=== PATIENT | male | born 1985 | race African-American/Black ===

== ENCOUNTER 2019-09-10 14:29 | Emergency (ER) | payer OTHER, SELFPAY ==
[~2019-09-10] VITALS: Ht 185.4 cm; Wt 89.6 kg
[~2019-09-10 14:29] MED LIST: ACET1TAB55 PO; AMOX500C PO; AUGM500T34 PO; AUGM875T28 PO; HYDR-3715 PO; IBUP80TA PO; NAPR-837 PO; PAME25CA PO; PRED20TA PO; ZOFR4TAB14 PO
[2019-09-10] MEDS ORDERED: PRED20TA PO (16:13)
[2019-09-10] MEDS ORDERED: AUGM875T28 PO (16:13)
[2019-09-10] MEDS ORDERED: FLUTISP (16:13)
[2019-09-10 16:17] VITALS: BP 136/88
== END 2019-09-10 16:19 | disposition home or self-care (01) ==
LOC: M ED 14:29
DX: J01.90 Acute sinusitis, unspecified (principal); F17.200 Nicotine dependence, unspecified, uncomplicated; F12.10 Cannabis abuse, uncomplicated

== ENCOUNTER 2019-09-20 12:41 | Emergency (ER) | payer SELFPAY ==
[~2019-09-20] VITALS: Ht 185.4 cm; Wt 92.7 kg
[~2019-09-20 12:41] MED LIST changes: +FLUTISP
[2019-09-20] MEDS ORDERED: CYCLOBENZAPRINE 10 MG TAB PO ONE (13:30)
[2019-09-20] MEDS ORDERED: IBUPROFEN 800 MG TAB PO ONE (15:00)
[2019-09-20] MEDS ORDERED: IBUP80TA PO (15:56)
[2019-09-20 16:00] VITALS: BP 141/76
== END 2019-09-20 16:01 | disposition home or self-care (01) ==
LOC: M ED 12:41
DX: M79.606 Pain in leg, unspecified (principal); W18.40XA Slipping, tripping and stumbling without falling, unspecified, initial encounter; Y92.410 Unspecified street and highway as the place of occurrence of the external cause; Y93.9 Activity, unspecified; Y99.9 Unspecified external cause status; F12.10 Cannabis abuse, uncomplicated

== ENCOUNTER 2021-06-08 00:07 | Emergency (ER) | payer SELFPAY ==
[~2021-06-08] VITALS: Ht 185.4 cm; Wt 80.3 kg
[2021-06-08 00:08] VITALS: BP 140/86
== END 2021-06-08 03:16 | disposition left against medical advice (07) ==
LOC: M ED 00:07
DX: Z53.21 Procedure and treatment not carried out due to patient leaving prior to being seen by health care provider (principal)

== ENCOUNTER 2021-06-22 23:05 | Emergency (ER) | payer SELFPAY ==
[~2021-06-22] VITALS: Ht 185.4 cm; Wt 78.8 kg
--- NOTE | 2021-06-23 01:54 | REPVR ---
PROCEDURE INFORMATION: Exam: XR Chest Exam date and time: 06/22/2021 12:00 AM Age: 36 years old Clinical indication: Pain; Angina pectoris; Additional info: Chest pain TECHNIQUE: Imaging protocol: XR of the chest. Views: 2 views. COMPARISON: No relevant prior studies available. FINDINGS: Lungs: Unremarkable. No consolidation. Pleural spaces: Unremarkable. No pleural effusion. No pneumothorax. Heart/Mediastinum: Unremarkable. No cardiomegaly. Bones/joints: Unremarkable. IMPRESSION: No acute findings. Electronically signed by: Maximiliano Boyd On 06/23/2021 01:53:37 AM
[2021-06-23] MEDS ORDERED: NS 1,000 ML IV ONE (07:40)
[2021-06-23] MEDS ORDERED: GI COCKTAIL 50ML BTL(HYOSCYAMINE/MAALOX/LIDOCAINE VISCOUS)(1:3:1) PO ONE (07:40)
[2021-06-23] MEDS ORDERED: PANTOPRAZOLE 40MG VIAL (C9113 PER 1) IV ONE (07:40)
--- OUTSIDE RECORDS SUMMARY | 2021-06-23 07:56 | CCD ---
Author Author [facility] Organization [facility] Address Unknown Phone Unavailable Support Name Relationship Address Phone LEAH Next Of Kin [address] [place] [address] Maryse Smith Next Of Kin [address] [place] [address] Paras CASTANEDA Miriam Next Of Kin [address] [place], [place] [id number] ISABELLA LEAL Next Of Kin [address] [place] [address] JOSÉ MANUEL Next Of Kin [address] [place] [address] CYNTHIA MAYER Next Of Kin [address] [facility] [address] [place] [address] Re-disclosure Warning The records that you are about to access may contain information from federally-assisted alcohol or drug abuse programs. If such information is present, then the following federally mandated warning applies: This information has been disclosed to you from records protected by federal confidentiality rules (42 CFR part 2). The federal rules prohibit you from making any further disclosure of this information unless further disclosure is expressly permitted by the written consent of the person to whom it pertains or as otherwise permitted by 42 CFR part 2. A general authorization for the release of medical or other information is NOT sufficient for this purpose. The Federal rules restrict any use of the information to criminally investigate or prosecute any alcohol or drug abuse patient.The records that you are about to access may contain highly sensitive health information, the redisclosure of which is protected by Article 27-F of the [place] Public Health law. If you continue you may have access to information: Regarding HIV / AIDS; Provided by facilities licensed or operated by the [place] Office of Mental Health; or Provided by the [place] Office for People With Developmental Disabilities. If such information is present, then the following [place] [facility] mandated warning applies: This information has been disclosed to you from confidential records which are protected by state law. State law prohibits you from making any further disclosure of this information without the specific written consent of the person to whom it pertains, or as otherwise permitted by law. Any unauthorized further disclosure in violation of state law may result in a fine or chcf sentence or both. A general authorization for the release of medical or other information is NOT sufficient authorization for further disc losure. Medications No Information Insurance Providers Payer name Policy type / Coverage type Policy ID Covered republican ID Covered republican's relationship to parra Policy Parra Plan Information [facility] [id number] [facility] PLAN [facility] [id number] ANSI-Medicaid [id number] [facility] Commercial [id number] Self [id number] [facility] Commercial [id number] Self [id number] [facility] [id number] [facility]-Medicaid [id number] [facility]-Medicaid [id number] [facility] Commercial [id number] Self [id number] [facility]-Medicaid [id number] SELF PAY ONLY [id number] Self Pay P UNAVAILABLE S UNAVAILA BLE Problems, Conditions, and Diagnoses No Information Surgeries/Procedures No Information Results No Information Social History No Information
[2021-06-23 08:32] LABS: BASO % 1.1 % (0.0-1.0); EOS # 0.1 10^3/uL (0.0-0.5); EOS % 2.2 % (0.0-3.0); HEMATOCRIT 40.1 % (42.0-52.0); HEMOGLOBIN 13.5 g/dl (13.5-17.5); LYMPH # 1.8 10^3/uL (1.5-5.0); MEAN CORPUSCULAR HEMOGLOBIN 28.7 pg (27.0-33.0); MEAN CORPUSCULAR HGB CONC 33.7 g/dl (32.0-36.5); MEAN CORPUSCULAR VOLUME 85.3 fl (80.0-96.0); MONO # 0.3 10^3/uL (0.0-0.8); MONO % 8.8 % (2.0-8.0); NEUTROPHILS # 1.4 10^3/uL (1.5-8.5); NEUTROPHILS % 37.9 % (36.0-66.0); PLATELET COUNT, AUTOMATED 200 10^3/uL (150-450); WHITE BLOOD COUNT 3.6 10^3/uL (4.0-10.0)
[2021-06-23 08:48] LABS: ALBUMIN 3.8 GM/DL (3.2-5.2); BILIRUBIN,DIRECT 0.2 MG/DL (0.0-0.2); BILIRUBIN,TOTAL 0.7 MG/DL (0.2-1.0); TOTAL PROTEIN 6.9 GM/DL (6.4-8.2)
[2021-06-23] MEDS ORDERED: KETOROLAC 30 MG/ML 1ML VIAL IV ONE (09:40)
[2021-06-23] MEDS ORDERED: OMEP-218 PO (10:14)
[2021-06-23 10:34] VITALS: BP 148/88
[2021-06-23 11:02] LABS: RSV AMPLIFICATION NEGATIVE (NEGATIVE)
--- NOTE | 2021-06-23 20:27 | ECGEPIP ---
[facility] - ED Test Date: 2021-06-22 Pat Name: KAMRAN GARZA Department: Room: - Gender: Male [employer] Specialist: GOSIA : 1985 Requested By: Tony Tatum Order Number: [id number] Reading MD: Tony Zelaya Measurements Intervals [place] Rate: 52 P: 49 OK: 180 QRS: 73 QRSD: 96 T: 55 QT: 392 QTc: 364 Interpretive Statements Sinus bradycardia Minimal voltage criteria for LVH, may be normal variant ( Sokolow-De Luna ) NO PRIORS FOR COMPARISON Electronically Signed on 06-23-2021 20:26:27 EST by Tony Zelaya
== END 2021-06-23 10:36 | disposition home or self-care (01) ==
LOC: M ED 23:05
DX: R07.89 Other chest pain (principal); R00.1 Bradycardia, unspecified; Z79.899 Other long term (current) drug therapy
CPT/HCPCS: 71046; 80047; 80076; 82550; 83690; 84484; 85025; 87631; 93005; 96361; 96374; 96375; 99284; C9113; J1885

== ENCOUNTER 2021-07-11 23:49 | Emergency (ER) | payer SELFPAY ==
[~2021-07-11] VITALS: Ht 185.4 cm; Wt 78.8 kg
[~2021-07-11 23:49] MED LIST changes: +OMEP-218 PO
[2021-07-11 23:50] VITALS: BP 140/86
[2021-07-12] MEDS ORDERED: NS 1,000 ML IV ONE (07:15)
[2021-07-12] MEDS ORDERED: KETOROLAC 30 MG/ML 1ML VIAL IV ONE (07:15)
[2021-07-12 07:50] LABS: BASO % 0.9 % (0.0-1.0); EOS # 0.1 10^3/uL (0.0-0.5); EOS % 2.8 % (0.0-3.0); HEMATOCRIT 40.1 % (42.0-52.0); HEMOGLOBIN 13.6 g/dl (13.5-17.5); LYMPH # 2.2 10^3/uL (1.5-5.0); LYMPH % 51.5 % (24.0-44.0); MEAN CORPUSCULAR HGB CONC 33.9 g/dl (32.0-36.5); MEAN CORPUSCULAR VOLUME 85.5 fl (80.0-96.0); MONO # 0.4 10^3/uL (0.0-0.8); NEUTROPHILS # 1.5 10^3/uL (1.5-8.5); NEUTROPHILS % 34.8 % (36.0-66.0); PLATELET COUNT, AUTOMATED 205 10^3/uL (150-450); RED BLOOD COUNT 4.69 10^6/uL (4.30-6.10); WHITE BLOOD COUNT 4.3 10^3/uL (4.0-10.0)
--- NOTE | 2021-07-12 08:13 | REP ---
INDICATION: CP, upper abd pain COMPARISON: 06/22/2021 TECHNIQUE: Portable AP view of the chest FINDINGS: The mediastinum and cardiac silhouette are stable and within normal limits for portable technique. The lung belle are clear without acute consolidation, effusion, or pneumothorax. Skeletal structures are intact. IMPRESSION: No acute cardiopulmonary process appreciated. <Electronically signed by Te Howell > 07/12/21 0809
[2021-07-12 08:35] LABS: ALBUMIN 3.8 GM/DL (3.2-5.2); BILIRUBIN,DIRECT 0.1 MG/DL (0.0-0.2); BILIRUBIN,TOTAL 0.5 MG/DL (0.2-1.0); TOTAL PROTEIN 7.1 GM/DL (6.4-8.2)
[2021-07-12] MEDS ORDERED: ASPE4PAD TOP (08:49)
[2021-07-12] MEDS ORDERED: NAPR-837 PO (08:49)
--- NOTE | 2021-07-12 19:26 | ECGEPIP ---
[facility] - ED Test Date: 2021-07-12 Pat Name: KAMRAN GARZA Department: Room: - Gender: Male [employer]: Rosanna PENN : 1985 Requested By: LINDA Joy Order Number: [id number] Reading MD: Rosetta Gómez Measurements Intervals [place] Rate: 57 P: 74 NC: 204 QRS: 77 QRSD: 116 T: 56 QT: 406 QTc: 395 Interpretive Statements Sinus bradycardia Left ventricular hypertrophy with QRS widening ( Sokolow-De Luna , Severiano product ) NSTTW abnormalities similar 06/22/21 Electronically Signed on 07-12-2021 19:25:35 EST by Rosetta Gómez
== END 2021-07-12 09:20 | disposition home or self-care (01) ==
LOC: M ED 23:49
DX: R07.89 Other chest pain (principal); R10.13 Epigastric pain; R00.1 Bradycardia, unspecified
CPT/HCPCS: 71045; 80047; 80076; 83690; 84484; 85025; 93005; 96361; 96374; 99284; J1885

== ENCOUNTER 2021-08-31 00:34 | Emergency (ER) | payer SELFPAY ==
[~2021-08-31] VITALS: Ht 185.4 cm; Wt 79.5 kg
[~2021-08-31 00:34] MED LIST changes: +ASPE4PAD TOP; +OMEP-173 PO; -OMEP-218 PO; +OMEP40CA4 PO; +SUCR1TA PO
[2021-08-31] MEDS ORDERED: GI COCKTAIL 50ML BTL(HYOSCYAMINE/MAALOX/LIDOCAINE VISCOUS)(1:3:1) PO ONE (01:50)
[2021-08-31 02:21] LABS: BASO % 0.8 % (0.0-1.0); EOS # 0.1 10^3/uL (0.0-0.5); EOS % 2.5 % (0.0-3.0); HEMATOCRIT 34.6 % (42.0-52.0); HEMOGLOBIN 11.7 g/dl (13.5-17.5); LYMPH # 2.3 10^3/uL (1.5-5.0); LYMPH % 48.5 % (24.0-44.0); MEAN CORPUSCULAR HEMOGLOBIN 28.7 pg (27.0-33.0); MEAN CORPUSCULAR HGB CONC 33.8 g/dl (32.0-36.5); MONO # 0.3 10^3/uL (0.0-0.8); MONO % 6.2 % (2.0-8.0); NEUTROPHILS % 41.8 % (36.0-66.0); PLATELET COUNT, AUTOMATED 188 10^3/uL (150-450); RED BLOOD COUNT 4.07 10^6/uL (4.30-6.10); WHITE BLOOD COUNT 4.8 10^3/uL (4.0-10.0)
[2021-08-31 02:44] LABS: BLOOD UREA NITROGEN 11 MG/DL (7-18); CARBON DIOXIDE LEVEL 28 MEQ/L (21-32); CHLORIDE LEVEL 110 MEQ/L (98-107); CREATININE FOR GFR 1.31 MG/DL (0.70-1.30); GLOMERULAR FILTRATION RATE > 60.0 (>60); GLUCOSE, FASTING 97 MG/DL (70-100); POTASSIUM SERUM 3.9 MEQ/L (3.5-5.1); SODIUM LEVEL 142 MEQ/L (136-145)
[2021-08-31 02:51] LABS: CK-MB VALUE MASS 2.6 NG/ML (<3.6); MB/CK RELATIVE INDEX 0.66 (< OR =4)
[2021-08-31 04:16] VITALS: BP 131/69
== END 2021-08-31 04:33 | disposition home or self-care (01) ==
LOC: M ED 00:34
DX: R07.89 Other chest pain (principal); R10.13 Epigastric pain; R00.1 Bradycardia, unspecified; K21.9 Gastro-esophageal reflux disease without esophagitis

== ENCOUNTER → 2021-09-06 | Outpatient (CLI) | payer SELFPAY ==
[~2021-09-06] MED LIST changes: +AMOX500T PO; +CLAR500T97 PO; +MELO15TA28; +OMEP40CA5; +SUCR1TAB56
[2021-09-06 11:36] LABS: BASO % 1.1 % (0.0-1.0); EOS # 0.1 10^3/uL (0.0-0.5); EOS % 3.1 % (0.0-3.0); HEMOGLOBIN 13.6 g/dl (13.5-17.5); LYMPH # 1.7 10^3/uL (1.5-5.0); LYMPH % 47.1 % (24.0-44.0); MEAN CORPUSCULAR HEMOGLOBIN 28.9 pg (27.0-33.0); MEAN CORPUSCULAR VOLUME 85.1 fl (80.0-96.0); MONO # 0.3 10^3/uL (0.0-0.8); MONO % 7.6 % (2.0-8.0); NEUTROPHILS # 1.5 10^3/uL (1.5-8.5); NEUTROPHILS % 40.8 % (36.0-66.0); PLATELET COUNT, AUTOMATED 223 10^3/uL (150-450); WHITE BLOOD COUNT 3.6 10^3/uL (4.0-10.0)
[2021-09-06 11:57] LABS: APPEARANCE, URINE CLEAR (CLEAR); BACTERIA, URINE AUTO 1+ (NEGATIVE); BILIRUBIN, URINE AUTO NEGATIVE (NEGATIVE); BLOOD, URINE BLOOD NEGATIVE (NEGATIVE); COLOR, URINE YELLOW (YELLOW); GLUCOSE, URINE (UA) AUTO NEGATIVE (NEGATIVE); KETONE, URINE AUTO TRACE mg/dL (NEGATIVE); LEUKOCYTE ESTERASE, URINE AUTO NEGATIVE (NEGATIVE); MUCUS, URINE SMALL (NEGATIVE); NITRITE, URINE AUTO NEGATIVE (NEGATIVE); PROTEIN, URINE AUTO NEGATIVE (NEGATIVE); RBC, URINE AUTO 0 /HPF (0-3); SPECIFIC GRAVITY URINE AUTO 1.025 (1.002-1.035); SQUAMOUS EPITHELIAL CELL UR AU 0 /HPF (0-6); WBC, URINE AUTO 1 /HPF (0-3)
[2021-09-06 12:29] LABS: ALBUMIN 4.2 GM/DL (3.2-5.2); ALT/SGPT 24 U/L (12-78); BILIRUBIN,TOTAL 0.6 MG/DL (0.2-1.0); BLOOD UREA NITROGEN 12 MG/DL (7-18); CALCIUM LEVEL 9.8 MG/DL (8.5-10.1); CARBON DIOXIDE LEVEL 29 MEQ/L (21-32); CHLORIDE LEVEL 109 MEQ/L (98-107); GLOMERULAR FILTRATION RATE > 60.0 (>60); GLUCOSE, FASTING 89 MG/DL (70-100); POTASSIUM SERUM 4.2 MEQ/L (3.5-5.1); SODIUM LEVEL 143 MEQ/L (136-145); TOTAL PROTEIN 7.1 GM/DL (6.4-8.2)
[2021-09-07 16:08] LABS: H PYLORI SERUM QUANT IGA <9.0 units (0.0-8.9); H PYLORI SERUM QUANT IGM <9.0 units (0.0-8.9); H PYLORI SERUM QUANT IgG ABY 4.01 (0.00-0.79)
== END ==
LOC: M LAB 10:21
PROVIDERS: ATTEND Nurse Practitioner Family
DX: R10.84 Generalized abdominal pain (principal); R82.90 Unspecified abnormal findings in urine

== ENCOUNTER 2021-09-09 10:08 | Emergency (ER) | payer SELFPAY ==
[~2021-09-09] VITALS: Ht 188 cm; Wt 75.7 kg
[~2021-09-09 10:08] MED LIST changes: -AMOX500T PO; -CLAR500T97 PO; -MELO15TA28; -OMEP40CA5; -SUCR1TAB56
[2021-09-09] MEDS ORDERED: MELO15TA28 (10:21)
[2021-09-09] MEDS ORDERED: OMEP40CA5 (10:21)
[2021-09-09] MEDS ORDERED: SUCR1TAB56 (10:21)
[2021-09-09] MEDS ORDERED: CLAR500T97 PO (12:21)
[2021-09-09] MEDS ORDERED: AMOX500T PO (12:21)
[2021-09-09 12:44] LABS: BASO % 0.9 % (0.0-1.0); EOS # 0.1 10^3/uL (0.0-0.5); EOS % 1.3 % (0.0-3.0); HEMATOCRIT 42.7 % (42.0-52.0); HEMOGLOBIN 14.4 g/dl (13.5-17.5); LYMPH % 43.9 % (24.0-44.0); MEAN CORPUSCULAR HGB CONC 33.7 g/dl (32.0-36.5); MEAN CORPUSCULAR VOLUME 85.9 fl (80.0-96.0); MONO # 0.3 10^3/uL (0.0-0.8); MONO % 6.1 % (2.0-8.0); NEUTROPHILS # 2.2 10^3/uL (1.5-8.5); NEUTROPHILS % 47.6 % (36.0-66.0); PLATELET COUNT, AUTOMATED 232 10^3/uL (150-450); RED BLOOD COUNT 4.97 10^6/uL (4.30-6.10); WHITE BLOOD COUNT 4.6 10^3/uL (4.0-10.0)
[2021-09-09 13:14] LABS: ALBUMIN 4.2 GM/DL (3.2-5.2); ALT/SGPT 22 U/L (12-78); BILIRUBIN,DIRECT 0.2 MG/DL (0.0-0.2); BILIRUBIN,TOTAL 0.9 MG/DL (0.2-1.0); BLOOD UREA NITROGEN 11 MG/DL (7-18); CALCIUM LEVEL 9.6 MG/DL (8.5-10.1); CARBON DIOXIDE LEVEL 30 MEQ/L (21-32); CHLORIDE LEVEL 107 MEQ/L (98-107); CREATININE FOR GFR 1.19 MG/DL (0.70-1.30); GLOMERULAR FILTRATION RATE > 60.0 (>60); GLUCOSE, FASTING 81 MG/DL (70-100); LIPASE 44 U/L (73-393); POTASSIUM SERUM 4.1 MEQ/L (3.5-5.1); SODIUM LEVEL 141 MEQ/L (136-145); TOTAL PROTEIN 7.2 GM/DL (6.4-8.2)
[2021-09-09 14:44] VITALS: BP 148/86
== END 2021-09-09 14:49 | disposition home or self-care (01) ==
LOC: M ED 10:08
DX: R91.1 Solitary pulmonary nodule (principal); R10.9 Unspecified abdominal pain; I10 Essential (primary) hypertension; D64.9 Anemia, unspecified; K21.9 Gastro-esophageal reflux disease without esophagitis; Z79.899 Other long term (current) drug therapy; F12.20 Cannabis dependence, uncomplicated

== ENCOUNTER → 2021-10-14 | Outpatient (CLI) | payer SELFPAY ==
[~2021-10-14] MED LIST changes: +AMOX500T PO; +CLAR500T97 PO; +MELO15TA28; +OMEP40CA5; +SUCR1TAB56
[2021-10-14 15:23] LABS: HIV 1&2 SCREEN CENTAUR NEGATIVE (NEGATIVE)
[2021-10-14 15:35] LABS: GC DNA AMPLIFICATION NEGATIVE (NEGATIVE)
== END ==
LOC: M LAB 13:33
PROVIDERS: ATTEND Nurse Practitioner Family
DX: R10.2 Pelvic and perineal pain (principal)

== ENCOUNTER 2021-10-22 23:16 | Emergency (ER) | payer SELFPAY ==
[~2021-10-22] VITALS: Ht 185.4 cm; Wt 78.6 kg
[2021-10-22 23:18] VITALS: BP 136/92
[2021-10-22] MEDS ORDERED: KETOROLAC 30 MG/ML 1ML VIAL IV ONE (23:55)
[2021-10-23 00:29] LABS: BASO % 0.5 % (0.0-1.0); EOS # 0.1 10^3/uL (0.0-0.5); HEMATOCRIT 38.8 % (42.0-52.0); HEMOGLOBIN 13.5 g/dl (13.5-17.5); LYMPH # 2.6 10^3/uL (1.5-5.0); LYMPH % 48.1 % (24.0-44.0); MEAN CORPUSCULAR HEMOGLOBIN 29.7 pg (27.0-33.0); MEAN CORPUSCULAR HGB CONC 34.8 g/dl (32.0-36.5); MEAN CORPUSCULAR VOLUME 85.5 fl (80.0-96.0); MONO # 0.3 10^3/uL (0.0-0.8); MONO % 5.3 % (2.0-8.0); NEUTROPHILS # 2.4 10^3/uL (1.5-8.5); NEUTROPHILS % 44.1 % (36.0-66.0); PLATELET COUNT, AUTOMATED 223 10^3/uL (150-450); RED BLOOD COUNT 4.54 10^6/uL (4.30-6.10); WHITE BLOOD COUNT 5.5 10^3/uL (4.0-10.0)
[2021-10-23 00:40] LABS: APPEARANCE, URINE CLEAR (CLEAR); BACTERIA, URINE AUTO NEGATIVE (NEGATIVE); BILIRUBIN, URINE AUTO NEGATIVE (NEGATIVE); BLOOD, URINE BLOOD NEGATIVE (NEGATIVE); COLOR, URINE YELLOW (YELLOW); GLUCOSE, URINE (UA) AUTO NEGATIVE (NEGATIVE); KETONE, URINE AUTO NEGATIVE (NEGATIVE); LEUKOCYTE ESTERASE, URINE AUTO NEGATIVE (NEGATIVE); NITRITE, URINE AUTO NEGATIVE (NEGATIVE); PROTEIN, URINE AUTO NEGATIVE (NEGATIVE); RBC, URINE AUTO 0 /HPF (0-3); SPECIFIC GRAVITY URINE AUTO 1.018 (1.002-1.035); SQUAMOUS EPITHELIAL CELL UR AU 0 /HPF (0-6); UROBILINOGEN, URINE AUTO 0.2 mg/dL (0.0-2.0); WBC, URINE AUTO 1 /HPF (0-3)
[2021-10-23 00:51] LABS: ALBUMIN 3.9 GM/DL (3.2-5.2); ALT/SGPT 29 U/L (12-78); BILIRUBIN,DIRECT 0.1 MG/DL (0.0-0.2); BILIRUBIN,TOTAL 0.4 MG/DL (0.2-1.0); BLOOD UREA NITROGEN 16 MG/DL (7-18); CALCIUM LEVEL 9.3 MG/DL (8.5-10.1); CARBON DIOXIDE LEVEL 31 MEQ/L (21-32); CHLORIDE LEVEL 106 MEQ/L (98-107); CREATININE FOR GFR 1.29 MG/DL (0.70-1.30); GLOMERULAR FILTRATION RATE > 60.0 (>60); GLUCOSE, FASTING 79 MG/DL (70-100); LIPASE 80 U/L (73-393); POTASSIUM SERUM 4.2 MEQ/L (3.5-5.1); SODIUM LEVEL 142 MEQ/L (136-145); TOTAL PROTEIN 7.1 GM/DL (6.4-8.2)
[2021-10-23] MEDS ORDERED: DICY10CA13 PO (01:02)
== END 2021-10-23 01:29 | disposition home or self-care (01) ==
LOC: M ED 23:16
DX: G89.29 Other chronic pain (principal); R10.9 Unspecified abdominal pain; K21.9 Gastro-esophageal reflux disease without esophagitis; Z86.19 Personal history of other infectious and parasitic diseases; F12.10 Cannabis abuse, uncomplicated
CPT/HCPCS: 74018; 80048; 80076; 81001; 83690; 85025; 96374; 99283; J1885

== ENCOUNTER → 2021-12-10 | Outpatient (CLI) | payer SELFPAY ==
[~2021-12-10] MED LIST changes: +DICY10CA13 PO
== END ==
LOC: M LABSMTC 10:46
PROVIDERS: ATTEND Anesthesiology
DX: Z01.812 Encounter for preprocedural laboratory examination (principal); Z20.822 Contact with and (suspected) exposure to COVID-19

== ENCOUNTER 2021-12-15 11:19 | Day surgery (SDC) | payer SELFPAY ==
[~2021-12-15] VITALS: Ht 185.4 cm; Wt 76.7 kg
[~2021-12-15 11:19] MED LIST changes: +LIDOCAINE 2% 100MG/5ML SDV (FOR ANES.) As Ordered ONE; +NS 1,000 ML IV ONE; +propofoL 200 MG/20 ML VIAL As Ordered ONE
[2021-12-15] MEDS ORDERED: fentaNYL 100 MCG/2 ML INJECTION As Ordered ONE (13:28)
[2021-12-15] MEDS ORDERED: propofoL 200 MG/20 ML VIAL As Ordered ONE (13:52)
[2021-12-15 14:10] VITALS: BP 132/87
== END 2021-12-15 14:17 | disposition home or self-care (01) ==
LOC: M OPP 11:19
PROVIDERS: ATTEND Internal Medicine Gastroenterology
DX: K31.A19 Gastric intestinal metaplasia without dysplasia, unspecified site (principal); R63.4 Abnormal weight loss; R10.84 Generalized abdominal pain; Z79.899 Other long term (current) drug therapy
CPT/HCPCS: 43239; 88305; 88342; J3010

== ENCOUNTER → 2021-12-28 | Outpatient (CLI) | payer SELFPAY ==
[~2021-12-28] MED LIST changes: -LIDOCAINE 2% 100MG/5ML SDV (FOR ANES.) As Ordered ONE; -NS 1,000 ML IV ONE; -propofoL 200 MG/20 ML VIAL As Ordered ONE
== END ==
LOC: M LABSMTC 09:52
PROVIDERS: ATTEND Anesthesiology
DX: Z01.812 Encounter for preprocedural laboratory examination (principal); Z20.822 Contact with and (suspected) exposure to COVID-19

== ENCOUNTER 2022-01-02 09:19 | Day surgery (SDC) | payer SELFPAY ==
[~2022-01-02] VITALS: Ht 185.4 cm; Wt 76.7 kg
[~2022-01-02 09:19] MED LIST changes: +LIDOCAINE 2% 100MG/5ML SDV (FOR ANES.) As Ordered ONE; +NS 1,000 ML IV ONE; +propofoL 200 MG/20 ML VIAL As Ordered ONE
[2022-01-02] MEDS ORDERED: GLUCAGON INJ 1MG VIAL As Ordered ONE (10:42)
[2022-01-02 11:26] VITALS: BP 122/74
== END 2022-01-02 11:28 | disposition home or self-care (01) ==
LOC: M OPP 09:19
PROVIDERS: ATTEND Internal Medicine Gastroenterology
DX: K64.8 Other hemorrhoids (principal); R10.32 Left lower quadrant pain; R10.12 Left upper quadrant pain; R19.4 Change in bowel habit; Z79.899 Other long term (current) drug therapy
CPT/HCPCS: 45378; J1610

== ENCOUNTER 2024-03-03 16:16 | Emergency (ER) | payer SELFPAY ==
[~2024-03-03] VITALS: Ht 188 cm; Wt 78.2 kg
[~2024-03-03 16:16] MED LIST changes: +DICY-61 PO; -DICY10CA13 PO; -LIDOCAINE 2% 100MG/5ML SDV (FOR ANES.) As Ordered ONE; -NS 1,000 ML IV ONE; -propofoL 200 MG/20 ML VIAL As Ordered ONE
[2024-03-03 18:44] LABS: BASO # 0.1 10^3/uL (0.0-0.2); EOS # 0.1 10^3/uL (0.0-0.5); EOS % 1.6 % (0.0-3.0); HEMATOCRIT 40.4 % (42.0-52.0); HEMOGLOBIN 13.8 g/dl (13.5-17.5); LYMPH # 2.2 10^3/uL (1.5-5.0); LYMPH % 44.6 % (24.0-44.0); MEAN CORPUSCULAR HEMOGLOBIN 29.3 pg (27.0-33.0); MEAN CORPUSCULAR HGB CONC 34.2 g/dl (32.0-36.5); MEAN CORPUSCULAR VOLUME 85.8 fl (80.0-96.0); MONO # 0.3 10^3/uL (0.0-0.8); MONO % 6.8 % (2.0-8.0); NEUTROPHILS # 2.3 10^3/uL (1.5-8.5); PLATELET COUNT, AUTOMATED 229 10^3/uL (150-450); RED BLOOD COUNT 4.71 10^6/uL (4.30-6.10)
[2024-03-03 19:02] LABS: CK-MB VALUE MASS 1.8 NG/ML (<3.6); LIPASE 19 U/L (12-53)
[2024-03-03 19:04] LABS: ALBUMIN 4.1 G/DL (3.2-5.2); ALKALINE PHOSPHATASE 50 U/L (46-116); ALT/SGPT 19 U/L (7.0-40); AST/SGOT 17 U/L (<34); BILIRUBIN,DIRECT 0.3 MG/DL (<0.4); BILIRUBIN,TOTAL 0.9 MG/DL (0.3-1.2); BLOOD UREA NITROGEN 11 MG/DL (9-23); CALCIUM LEVEL 9.8 MG/DL (8.5-10.1); CARBON DIOXIDE LEVEL 28 MMOL/L (20-31); CHLORIDE LEVEL 108 MMOL/L (98-107); CREATININE FOR GFR 1.12 MG/DL (0.70-1.30); GLOMERULAR FILTRATION RATE > 60.0 (>60); GLUCOSE, FASTING 75 MG/DL (60-100); SODIUM LEVEL 141 MMOL/L (136-145)
[2024-03-03 19:06] LABS: CPK CREATINE PHOSPHOKINASE 144 U/L (46-171); MB/CK RELATIVE INDEX 1.25 (< OR =4)
[2024-03-03] MEDS: MAALOX 30 ML SUSP *UDC PO ONE (23:00)
[2024-03-03] MEDS: KETOROLAC 30 MG/ML 1ML VIAL IM ONE (23:02)
[2024-03-03] MEDS ORDERED: PEPC1TAB5 PO (23:37)
[2024-03-03] MEDS ORDERED: OMEP-173 PO (23:37)
[2024-03-03 23:43] LABS: CK-MB VALUE MASS 1.7 NG/ML (<3.6)
[2024-03-04 00:02] VITALS: BP 139/91; TEMP 97.3; O2SAT 100
[2024-03-04 00:04] LABS: MB/CK RELATIVE INDEX 1.25 (< OR =4)
== END 2024-03-04 00:18 | disposition home or self-care (01) ==
LOC: M ED 16:16
DX: K21.9 Gastro-esophageal reflux disease without esophagitis (principal); R00.1 Bradycardia, unspecified; R51.9 Headache, unspecified; F17.200 Nicotine dependence, unspecified, uncomplicated; F12.10 Cannabis abuse, uncomplicated; F10.10 Alcohol abuse, uncomplicated; Z79.899 Other long term (current) drug therapy
CPT/HCPCS: 71046; 80048; 80076; 82550; 82553; 83690; 84484; 85025; 87426; 93005; 96372; 99284; J1885

== ENCOUNTER 2024-08-17 21:03 | Emergency (ER) | payer SELFPAY ==
[~2024-08-17] VITALS: Ht 185.4 cm; Wt 80.9 kg
[~2024-08-17 21:03] MED LIST changes: +PEPC1TAB5 PO
[2024-08-18] MEDS ORDERED: CETI-24 PO (00:02)
[2024-08-18] MEDS ORDERED: BENZ200C70 PO (00:02)
[2024-08-18] MEDS: CETIRIZINE (ZyrTEC) 10 MG TAB PO ONE (00:10)
[2024-08-18 00:16] VITALS: BP 135/94; TEMP 97.9; O2SAT 100
== END 2024-08-18 00:18 | disposition home or self-care (01) ==
LOC: M ED 21:03
DX: B09 Unspecified viral infection characterized by skin and mucous membrane lesions (principal); B97.4 Respiratory syncytial virus as the cause of diseases classified elsewhere; Z79.899 Other long term (current) drug therapy

== ENCOUNTER 2024-11-10 00:24 | Emergency (ER) | payer SELFPAY ==
[~2024-11-10] VITALS: Ht 188 cm; Wt 82.6 kg
[~2024-11-10 00:24] MED LIST changes: +BENZ200C70 PO; +CETI-24 PO
[2024-11-10 00:28] VITALS: BP 163/89; TEMP 97.8; O2SAT 100
== END 2024-11-10 04:30 | disposition left against medical advice (07) ==
LOC: M ED 00:24
DX: Z53.21 Procedure and treatment not carried out due to patient leaving prior to being seen by health care provider (principal)

== ENCOUNTER 2025-03-17 23:11 | Emergency (ER) | payer SELFPAY ==
[~2025-03-17] VITALS: Ht 185.4 cm; Wt 76.6 kg
[2025-03-17 23:13] VITALS: BP 137/75; TEMP 96.6; O2SAT 100
[2025-03-17 23:44] LABS: BASO # 0.1 10^3/uL (0.0-0.2); BASO % 0.8 % (0.0-1.0); EOS # 0.1 10^3/uL (0.0-0.5); EOS % 1.7 % (0.0-3.0); LYMPH # 1.7 10^3/uL (1.5-5.0); LYMPH % 28.6 % (24.0-44.0); MONO # 0.4 10^3/uL (0.0-0.8); MONO % 6.2 % (2.0-8.0); NEUTROPHILS # 3.8 10^3/uL (1.5-8.5); NEUTROPHILS % 62.5 % (36.0-66.0); PLATELET COUNT, AUTOMATED 205 10^3/uL (150-450)
[2025-03-18 00:09] LABS: CALCIUM LEVEL 9.5 MG/DL (8.5-10.1); CARBON DIOXIDE LEVEL 29.0 MMOL/L (20-31); CHLORIDE LEVEL 106.0 MMOL/L (98-107); CK-MB VALUE MASS 1.7 NG/ML (<3.6); CREATININE FOR GFR 1.25 MG/DL (0.70-1.30); GLOMERULAR FILTRATION RATE 75.1 (>60); POTASSIUM SERUM 4.0 MMOL/L (3.5-5.1); SODIUM LEVEL 144.0 MMOL/L (136-145)
[2025-03-18 00:16] LABS: CPK CREATINE PHOSPHOKINASE 112.0 U/L (46-171); MB/CK RELATIVE INDEX 1.51 (< OR =4)
== END 2025-03-18 03:14 | disposition left against medical advice (07) ==
LOC: M ED 23:11
DX: Z53.21 Procedure and treatment not carried out due to patient leaving prior to being seen by health care provider (principal)